=== PATIENT | female | born 1965 | race Caucasian/White ===

== ENCOUNTER → 2016-09-11 | Outpatient (CLI) | payer OTHER ==
[2016-09-11 19:30] LABS: ABSOLUTE BASOPHILS # (AUTO) 0.1 10^3/uL (0.0-0.2); ABSOLUTE EOSINOPHILS # (AUTO) 0.3 10^3/uL (0.0-0.6); ABSOLUTE LYMPHOCYTES (AUTO) 1.2 10^3/uL (0.5-4.7); ABSOLUTE MONOCYTES (AUTO) 0.3 10^3/uL (0.1-1.4); ABSOLUTE NEUT (AUTO) 3.3 10^3/uL (1.7-8.2); EOSINOPHILS % (AUTO) 5.3 % (0-6); HEMATOCRIT 42.3 % (36.0-47.0); HEMOGLOBIN 14.2 g/dL (12.0-15.5); HGB HCT DIFFERENCE 0.3; LYMPHOCYTES % (AUTO) 23.3 % (13-45); MEAN CORPUSCULAR HEMOGLOBIN 30.2 pg (27.0-33.4); MEAN CORPUSCULAR HGB CONC 33.5 g/dL (32.0-36.0); MEAN CORPUSCULAR VOLUME 90 fl (80-97); MONOCYTES % (AUTO) 5.9 % (3-13); RED BLOOD COUNT 4.69 10^6/uL (3.72-5.28); RED CELL DISTRIBUTION WIDTH 12.7 % (11.5-14.0); SEGMENTED NEUTROPHILS % (AUTO) 64.5 % (42-78); WHITE BLOOD COUNT 5.2 10^3/uL (4.0-10.5)
[2016-09-13 15:39] LABS: IMMUNOGLOBULIN E 66 IU/mL (0-100)
[2016-09-17 14:40] LABS: E001-IGE CAT DANDER 1.97 kU/L (Class III); E005-IGE DOG DANDER 0.32 kU/L (Class I); G002-IGE BERMUDA GRASS <0.10 kU/L (Class 0); G006-IGE TIMOTHY GRASS <0.10 kU/L (Class 0); G010-IGE JOHNSON GRASS <0.10 kU/L (Class 0); G017-IGE BAHIA GRASS <0.10 kU/L (Class 0); I100-IGE COCKROACHAMERICAN <0.10 kU/L (Class 0); M001-IGE PENICILLIUM CHRYSOGEN <0.10 kU/L (Class 0); M002-IGE CLADOSPORIUM HERBARUM <0.10 kU/L (Class 0); M003-IGE ASPERGILLUS FUMIGATUS <0.10 kU/L (Class 0); M004-IGE MUCOR RACEMOSUS <0.10 kU/L (Class 0); M005-IGE CANDIDA ALBICANS 1.04 kU/L (Class II); M006-IGE ALTERNARIA ALTERNATA <0.10 kU/L (Class 0); M008-IGE SETOMELANOMMA ROSTRAT <0.10 kU/L (Class 0); M009-IGE FUSARIUM PROLIFERATUM <0.10 kU/L (Class 0); M010-IGE STEMPHYLIUM HERBARUM <0.10 kU/L (Class 0); M012-IGE AUREOBASIDI PULLULANS <0.10 kU/L (Class 0); M013-IGE PHOMA BETAE <0.10 kU/L (Class 0); T001-IGE MAPLE/BOX ELDER <0.10 kU/L (Class 0); T003-IGE BIRCH SILVER <0.10 kU/L (Class 0); T006-IGE CEDAR MOUNTAIN <0.10 kU/L (Class 0); T007-IGE OAK WHITE <0.10 kU/L (Class 0); T008-IGE ELM AMERICAN (WHITE <0.10 kU/L (Class 0); T011-IGE MAPLE LEAF SYCAMORE <0.10 kU/L (Class 0); T041-IGE HICKORY WHITE <0.10 kU/L (Class 0); T211-IGE SWEET GUM <0.10 kU/L (Class 0); W001-IGE RAGWEED SHORT/COMMO <0.10 kU/L (Class 0); W006-IGE MUGWORT <0.10 kU/L (Class 0); W009-IGE PLANTAIN ENGLISH <0.10 kU/L (Class 0); W014-IGE PIGWEED ROUGH <0.10 kU/L (Class 0); W018-IGE SHEEP SORREL(DOCK) <0.10 kU/L (Class 0); W020-IGE NETTLE <0.10 kU/L (Class 0)
[2016-09-17 14:42] LABS: M014-IGE EPICOCCUM PURPURASCEN <0.10 kU/L (Class 0)
== END ==
LOC: OD 16:51
PROVIDERS: ATTEND Nurse Practitioner Adult Health
DX: J45.40 Moderate persistent asthma, uncomplicated (principal); R05 Cough
CPT/HCPCS: 36415; 71020; 82785; 85025; 86003; 87070; 87205